=== PATIENT | female | born 1930 | race Caucasian/White ===

== ENCOUNTER → 2018-11-16 | Outpatient (CLI) | payer MEDICARE, OTHER ==
[~2018-11-16] MED LIST: ASPI81CH; CLOP75 PO; ELIQUIS5 MG PO; EXELON PATCH; IBUP400 PO; MULT50FEL; MULVITMIND PO; NAPR220; Norvasc2.5 MG; PRAV20 PO; Super B Comple150 MG PO; UBID10; UBID100 PO; Zofran Odt4 MG SL
== END | disposition home or self-care (01) ==
LOC: LAB SHORT 08:07 → PLD 08:07
DX: L81.4 Other melanin hyperpigmentation (principal)
CPT/HCPCS: 88305

== ENCOUNTER 2019-02-28 14:05 | Emergency (ER) | payer MEDICARE, OTHER ==
[~2019-02-28] VITALS: Ht 157.5 cm; Wt 54.4 kg
--- NOTE | 2019-02-28 18:40 | NUR ---
02/28/19 1840 SOPHIE TOBAR History, Chart, Medications and Allergies reviewed before start of procedure.MONITOR INTACT WITH CONTINUOUS PULSE OXIMETRY AND INTERMITTENT BP.3-LEAD EKG REVIEWED WITH PHYSICIAN PRIOR TO START OF PROCEDURE.O2 VIA N/C INTACT THROUGHOUT SEDATION/PROCEDURE. PATIENT DETERMINED TO BE ASA APPROPRIATE FOR PROPOFOL SEDATION PRIOR TO START OF PROCEDURE BY DR. LUGO.
--- NOTE | 2019-02-28 18:40 | NUR ---
INTO SDS VIA [employer]. HISTORY AND ALLERGIES REVIEWED. NPO STATUS CONFIRMED. PT CONFEDERATED COOS AND FORGETFUL. PT SON, MIMI AT BEDSIDE FOR INFORMED CONSENT. RESP SLIGHTLY SHALLOW, BUT SATS>90% ON RA.
--- NOTE | 2019-02-28 19:56 | NUR ---
Patient up to Ambulate independently. Gait steady. Discharge instructions reviewed with son. Patient verbalizes understanding. Copy given to son to take to [facility]. Discharged via wheelchair to private car for ride home.
[2019-03-04] MEDS ORDERED: ELIQUIS2.5 MG PO (11:55)
[2019-03-04] MEDS ORDERED: AMLO5 PO (11:56)
[2019-03-04] MEDS ORDERED: RIVASTIGMINE6 MG PO (11:56)
[2019-03-04] MEDS ORDERED: TRIM100 PO (11:56)
== END 2019-02-28 18:36 | disposition other institution (70) ==
LOC: ER 14:05
DX: T18.128A Food in esophagus causing other injury, initial encounter (principal); I10 Essential (primary) hypertension; F03.90 Unspecified dementia, unspecified severity, without behavioral disturbance, psychotic disturbance, mood disturbance, and anxiety; Z86.73 Personal history of transient ischemic attack (TIA), and cerebral infarction without residual deficits; Z88.8 Allergy status to other drugs, medicaments and biological substances; Z79.899 Other long term (current) drug therapy
CPT/HCPCS: 74220; 96374; 96375; 99285-25; J1610; J2405; J2704; J7120

== ENCOUNTER 2019-03-07 10:58 | Day surgery (SDC) | payer MEDICARE, OTHER ==
[~2019-03-07] VITALS: Ht 152.4 cm; Wt 51.1 kg
[~2019-03-07 10:58] MED LIST changes: +AMLO5 PO; +ELIQUIS2.5 MG PO; +RIVASTIGMINE6 MG PO; +TRIM100 PO
== END 2019-03-07 13:19 | disposition home or self-care (01) ==
LOC: ORSCSDS 10:58
PROVIDERS: Internal Medicine Gastroenterology
PROC: 0D758ZZ Dilation of Esophagus, Via Natural or Artificial Opening Endoscopic (ICD-10-PCS; principal; 2019-03-07 12:45)
DX: R13.10 Dysphagia, unspecified (principal); K22.2 Esophageal obstruction; I85.00 Esophageal varices without bleeding; K44.9 Diaphragmatic hernia without obstruction or gangrene; I10 Essential (primary) hypertension; F32.9 Major depressive disorder, single episode, unspecified; E78.5 Hyperlipidemia, unspecified; Z79.01 Long term (current) use of anticoagulants; Z79.899 Other long term (current) drug therapy
CPT/HCPCS: C1726; J2704; J7120

== ENCOUNTER → 2020-02-07 | Outpatient (CLI) | payer MEDICARE, OTHER | END | disposition home or self-care (01) | LOC: LAB SHORT 12:36 → PLD 12:36 | DX: C44.319 Basal cell carcinoma of skin of other parts of face (principal) | CPT/HCPCS: 88305 ==

== ENCOUNTER → 2020-05-18 | Outpatient (CLI) | payer MEDICARE, OTHER ==
[~2020-05-18] MED LIST changes: +CARB10OTL BOTHEARS; +MASOPHEN325 M3 PO; +OMEP20ER PO; +VITAMIN D310 MC4 PO
[2020-05-18 11:12] LABS: BASOPHILS ABSOLUTE AUTO 0.04 K/mm3 (0.00-0.23); BASOPHILS PERCENT AUTO 1 % (0-2); EOSINOPHILS PERCENT AUTO 2 % (0-6); Hematocrit 42.3 % (33.0-51.0); Hemoglobin 13.7 g/dL (11.5-16.0); IMMATURE GRAN ABSOLUTE AUTO 0.01 K/mm3 (0.00-0.10); IMMATURE GRAN PERCENT AUTO 0 % (0-1); LYMPHOCYTES ABSOLUTE AUTO 1.36 K/mm3 (0.84-5.20); LYMPHOCYTES PERCENT AUTO 25 % (21-46); MONOCYTES PERCENT AUTO 7 % (4-13); Mean Corpuscular HGB 30.6 pg (26.0-34.0); Mean Corpuscular HGB Conc 32.4 g/dL (31.5-36.5); Mean Corpuscular Volume 94 fL (80-100); Mean Platelet Volume 10.8 fL (9.1-12.4); NEUTROPHILS ABSOLUTE AUTO 3.46 K/mm3 (1.96-9.15); NEUTROPHILS PERCENT AUTO 65 % (41-73); Platelet Count 191 K/mm3 (150-400); RDW Coefficient Variation 11.9 % (11.7-14.2); RDW Standard Deviation 41.5 fL (35.1-46.3); Red Blood Cell Count 4.48 M/mm3 (3.80-5.20); White Blood Cell Count 5.37 K/mm3 (4.00-11.30)
[2020-05-18 11:18] LABS: Alanine Aminotransfer (ALT/SGP 17 U/L (12-78); Albumin, Blood 3.2 g/dL (3.4-5.0); Albumin/Globulin Ratio 0.9 (0.8-1.8); Alk Phos 60 U/L (50-136); Anion Gap 5 mmol/L (6-16); Aspartate Aminotrans (AST/SGOT 9 U/L (12-37); Bilirubin, Total 1.4 mg/dL (0.1-1.0); Blood Urea Nitrogen 17 mg/dL (8-24); Bun/Creatinine Ratio 20.5 (12.0-20.0); CHOL/HDL RATIO 2.6; CO2, Blood 28 mmol/L (21-32); Calcium, Blood 8.8 mg/dL (8.5-10.1); Chloride, Blood 109 mmol/L (98-108); Cholesterol 168 mg/dL (50-200); Creatinine, Blood 0.83 mg/dL (0.40-1.00); Globulin, Blood 3.4 g/dL (2.2-4.0); Glomerular Filtration Rate >60 (60-); Glucose, Blood 104 mg/dL (70-99); HDL Cholesterol 64 mg/dL (>39); LDL/HDL RATIO 1.3; Low Density Lipoprotein Chol 86 mg/dL (0-110); Potassium, Blood 4.2 mmol/L (3.5-5.5); Sodium, Blood 142 mmol/L (136-145); Total Protein, Blood 6.6 g/dL (6.4-8.2); Triglycerides 90 mg/dL (30-160); Very Low Density Lipoprot Chol 18 mg/dL (6-32)
== END | disposition home or self-care (01) ==
LOC: LAB 09:10 → LAB SHORT 09:10
PROVIDERS: Internal Medicine
DX: E78.5 Hyperlipidemia, unspecified (principal); I82.409 Acute embolism and thrombosis of unspecified deep veins of unspecified lower extremity; I10 Essential (primary) hypertension
CPT/HCPCS: 80053; 80061; 85025

== ENCOUNTER 2020-09-07 08:17 | Day surgery (SDC) | payer MEDICARE, OTHER ==
[~2020-09-07 08:17] MED LIST changes: -CARB10OTL BOTHEARS; -MASOPHEN325 M3 PO; -OMEP20ER PO; -VITAMIN D310 MC4 PO
[2020-09-18 09:34] LABS: Performing Lab SYMBIODX; Test Name FISH
[2020-10-01] MEDS ORDERED: MASOPHEN325 M3 PO (16:18)
[2020-10-01] MEDS ORDERED: ELIQUIS2.5 MG PO (16:19)
[2020-10-01] MEDS ORDERED: CARB10OTL BOTHEARS (16:20)
[2020-10-01] MEDS ORDERED: OMEP20ER PO (16:21)
[2020-10-01] MEDS ORDERED: VITAMIN D310 MC4 PO (16:23)
[2020-10-01] MEDS ORDERED: RIVASTIGMINE6 MG PO (16:24)
== END 2020-09-07 23:12 | disposition home or self-care (01) ==
LOC: MOI US 08:17 → MOI MAM 09:30 → MOI US 23:12
PROVIDERS: Pathology Clinical Pathology/Laboratory Medicine
DX: C50.912 Malignant neoplasm of unspecified site of left female breast (principal); R92.8 Other abnormal and inconclusive findings on diagnostic imaging of breast; Z17.1 Estrogen receptor negative status [ER-]
CPT/HCPCS: 19083; 77065; 88305; 88360; 88374; A4648

== ENCOUNTER → 2020-09-27 | Outpatient (CLI) | payer MEDICARE, OTHER ==
[~2020-09-27] MED LIST changes: +CARB10OTL BOTHEARS; +MASOPHEN325 M3 PO; +OMEP20ER PO; +VITAMIN D310 MC4 PO
[2020-09-27 13:43] LABS: Hemoglobin 13.6 g/dL (11.5-16.0); Mean Corpuscular HGB 31.1 pg (26.0-34.0); Mean Corpuscular HGB Conc 32.4 g/dL (31.5-36.5); Mean Corpuscular Volume 96 fL (80-100); Mean Platelet Volume 11.1 fL (9.1-12.4); Platelet Count 184 K/mm3 (150-400); RDW Coefficient Variation 12.6 % (11.7-14.2); Red Blood Cell Count 4.37 M/mm3 (3.80-5.20); White Blood Cell Count 7.91 K/mm3 (4.00-11.30)
[2020-09-27 14:06] LABS: Anion Gap 7 mmol/L (6-16); Blood Urea Nitrogen 20 mg/dL (8-24); Bun/Creatinine Ratio 22.4 (12.0-20.0); CO2, Blood 25 mmol/L (21-32); Chloride, Blood 109 mmol/L (98-108); Creatinine, Blood 0.89 mg/dL (0.40-1.00); Glomerular Filtration Rate >60 (60-); Glucose, Blood 100 mg/dL (70-99); Potassium, Blood 4.1 mmol/L (3.5-5.5); Sodium, Blood 141 mmol/L (136-145)
== END | disposition home or self-care (01) ==
LOC: LAB SHORT 12:38 → PLD 12:38
PROVIDERS: Surgery
DX: Z01.818 Encounter for other preprocedural examination (principal); I10 Essential (primary) hypertension
CPT/HCPCS: 80048; 85027

== ENCOUNTER 2020-10-08 08:30 | Day surgery (SDC) | payer MEDICARE, OTHER ==
[~2020-10-08] VITALS: Ht 149 cm; Wt 55.3 kg
--- NOTE | 2020-10-08 11:04 | NUR ---
PT WITH SEVERE DEMENTIA. DAUGHTER IN LAW AT BEDSIDE. PATIENT IN W/C, ABLE TO ABMULATE WITH FWW. History, Chart, Medications and Allergies reviewed before start of procedure.Surgical site prepped with 2% Chlorhexidine cloth wipe.
--- NOTE | 2020-10-08 12:45 | NUR ---
PT REPORT FROM SAIRA GARRETT RN. PT BASELINE CHALKYITSIK, HEARING AIDE IN RT EAR, PT SLIGHTLY MORE AWAKE AND WIPING OWN FACE. PT BASELINE COGNITION IS KNEW NAME AND PLACE ONLY. DAUGHTER ACCOMPANIED PT TO SURGERY.
--- NOTE | 2020-10-08 13:14 | NUR ---
REMOVED HEATING ELEMENT AND CHECKED DRESSING WHICH REMAINS CDI. REPORT TO ELI DYSON RN.
--- NOTE | 2020-10-08 13:24 | NUR ---
1320- RESUMED CARE OF PATIENT. PATIENT SITTING UP IN BED, RESTING QUIETLY WITH EYES CLOSED. BREAST BINDER INTACT. BREATHING RA. SPOKE TO DAUGHTER, ALTHEA, ON PHONE, WHO WILL BE HERE SOON. SHE WILL DRIVE PATIENT HOME WHEN SHE IS READY TO GO HOME.
--- NOTE | 2020-10-08 13:33 | NUR ---
AWOKE AGITATED WITH BLACKETS AND BREAST BINDER. ATTEMPTED TO MAKE MORE COMFORTABLE. PATIENT WOULD NOT ANSWER ANY QUESTIONS OR FOLLOW ANY DIRECTIONS. PLAN TO HAVE HER DAUGHTER AT BEDSIDE TO COMFORT HER UPON HER ARRIVAL TO THE DEPARTMENT.
--- NOTE | 2020-10-08 13:52 | NUR ---
PATIENT CONTINUES TO BE AGITATED WITH BREAST BINDER, PICKING AT IT AND TELLING NURSE TO TAKE IT OFF. SPOKE TO DR FERRER ON THE PHONE AND HE AGREED IT WAS SAFE TO REMOVE THE BREAST BINDER. BREAST BINDER REMOVED, BUT PUT IN PATIENT'S BAG TO GO HOME WITH HER. STERI STRIP TO LEFT BREAST NOTED INTACT WITH NO VISIBLE DRAINAGE, SWELLING, ERYTHEMA OR BRUISING NOTED.
--- NOTE | 2020-10-08 14:10 | NUR ---
UP TO THE BR WITH WALKER AND TWO PERSON STAND BY ASSIST. VSS. BREATHING RA. DENIES PAIN OR C/O. DAUGHTER AT BEDSIDE.
--- NOTE | 2020-10-08 14:24 | NUR ---
Discharge instructions reviewed with TAWANA Haro, from [facility] where isaiah lives. Prescription for pain medication given to daughter along with paper copy of discharge instructions and orders. Patient would like a pain pill for pain prevention to surgery site, but denies current pain.
--- NOTE | 2020-10-08 14:39 | NUR ---
10/08/20 1438 Fernanda Guerrero SPECIMEN SENT FOR PATHOLOGY (1 OF 1) LEFT BREAST MASS.
== END 2020-10-08 14:35 | disposition home or self-care (01) ==
LOC: ORSCMMR 08:30 → ORD 10:00 → ORSCMMR 10:00
PROVIDERS: Surgery
PROC: 0HBU0ZZ Excision of Left Breast, Open Approach (ICD-10-PCS; principal; 2020-10-08 10:00)
DX: C50.812 Malignant neoplasm of overlapping sites of left female breast (principal); I10 Essential (primary) hypertension; G30.9 Alzheimer's disease, unspecified; F02.80 Dementia in other diseases classified elsewhere, unspecified severity, without behavioral disturbance, psychotic disturbance, mood disturbance, and anxiety; Z79.899 Other long term (current) drug therapy
CPT/HCPCS: 88307; A9270; J0690; J1100; J2405; J2704; J3010; J7120

== ENCOUNTER 2021-03-17 03:39 | Emergency (ER) | payer OTHER ==
[~2021-03-17] VITALS: Ht 152.4 cm; Wt 65.8 kg
[2021-03-17] MEDS ORDERED: Acetaminophen650 M1 PO (06:22)
== END 2021-03-17 06:37 | disposition home or self-care (01) ==
LOC: ER 03:39
DX: S42.211A Unspecified displaced fracture of surgical neck of right humerus, initial encounter for closed fracture (principal); Z88.8 Allergy status to other drugs, medicaments and biological substances; I10 Essential (primary) hypertension; Z86.73 Personal history of transient ischemic attack (TIA), and cerebral infarction without residual deficits; Z79.899 Other long term (current) drug therapy; W06.XXXA Fall from bed, initial encounter
CPT/HCPCS: 29505; 73020; 73030; 99283-25